=== PATIENT | male | born 1940 | race Caucasian/White ===

== ENCOUNTER → 2023-11-12 12:50 | Outpatient (REF) | payer OTHER, SELFPAY | LOC: DHCBS MAIN 12:50 | PROVIDERS: ATTENDING PHYSICIAN Nuclear Medicine Nuclear Cardiology; FAMILY PHYSICIAN Internal Medicine | DX: Z95.1 Presence of aortocoronary bypass graft (principal); I25.10 Atherosclerotic heart disease of native coronary artery without angina pectoris; I50.30 Unspecified diastolic (congestive) heart failure | CPT/HCPCS: 93306 ==

== ENCOUNTER 2024-03-27 13:15 | Outpatient (RCR) | payer OTHER, SELFPAY | END 2024-03-27 23:59 | disposition home or self-care (01) | LOC: PURB 13:15 | PROVIDERS: ATTENDING PHYSICIAN Internal Medicine Critical Care Medicine; FAMILY PHYSICIAN Internal Medicine | DX: J44.9 Chronic obstructive pulmonary disease, unspecified (principal) | CPT/HCPCS: 94625; G0237 ==

== ENCOUNTER 2024-04-22 23:01 | Inpatient (IN) | payer OTHER, SELFPAY ==
[2024-04-22] VITALS (9 sets, daily range): BP systolic 121–167; BP diastolic 10–117
[2024-04-22 19:22] LABS: % Basophils 0.5 % (0-2); % Eosinophils 1.9 % (0-6); % Immature Granulocytes 0.3 % (0-0.5); % Lymphocytes 13.7 % (20.5-51.1); % Monocytes 6.6 % (1.7-9.3); Absolute Eosinophils 0.2 10^3/uL (0-0.7); Absolute Lymphocytes 1.1 10^3/uL (1.2-3.4); Absolute Monocytes 0.5 10^3/uL (0.1-0.6); Absolute Neutrophils 6.1 10^3/uL (1.4-6.5); Hematocrit 43.4 % (39.0-52.0); Mean Corp Hgb Conc. 34.6 g/dL (33.0-37.0); Mean Corpuscular Hgb 30.4 pg (27.0-31.0); Mean Corpuscular Volume 87.9 fL (80.0-94.0); Nucleated Red Blood Cells % 0 % (-); Red Blood Cell Count 4.94 10^6/uL (4.70-6.10); Red Cell Dist. Width 14.3 % (11.5-14.5); White Blood Cell Count 7.9 10^3/uL (4.8-10.8)
[2024-04-22 19:37] LABS: ALT (SGPT) 20 U/L (0-50); AST (SGOT) 38 U/L (17-59); Albumin 4.7 g/dl (3.5-5.0); Alkaline Phosphatase 66 U/L (38-126); Blood Urea Nitrogen 26 mg/dl (9-20); Calcium 9.6 mg/dl (8.4-10.2); Carbon Dioxide 26 mmol/L (22-30); Chloride 97 mmol/L (98-107); Glucose 126 mg/dl (70-99); Lipase 60 U/L (23-300); Sodium 133 mmol/L (135-145); Total Bilirubin 1.3 mg/dl (0.2-1.3); Total Protein 7.3 g/dl (6.3-8.2); eGFR > 60.00
[2024-04-22 19:40] LABS: Platelet Count 193 10^3/uL (130-400)
[2024-04-22] MEDS: NSS 1000 IV (19:59)
[2024-04-22] MEDS: DILAUDID 0.5 MG IV (19:59)
[2024-04-22 20:12] LABS: ALT (SGPT) 19 U/L (0-50); AST (SGOT) 33 U/L (17-59); Albumin 4.5 g/dl (3.5-5.0); Alkaline Phosphatase 67 U/L (38-126); Blood Urea Nitrogen 27 mg/dl (9-20); Calcium 9.5 mg/dl (8.4-10.2); Carbon Dioxide 29 mmol/L (22-30); Chloride 97 mmol/L (98-107); Glucose 120 mg/dl (70-99); Potassium 4.9 mmol/L (3.5-5.1); Sodium 133 mmol/L (135-145); Total Bilirubin 1.2 mg/dl (0.2-1.3); Total Protein 6.9 g/dl (6.3-8.2); eGFR > 60.00
[2024-04-22] MEDS: DILAUDID 1 MG IV (21:19)
--- NOTE | 2024-04-22 21:39 | ED.GENMED ---
History of Present Illness
General
Chief Complaint: Abdominal Pain
Source: patient
Exam Limitations: none
Time Seen by Provider: 04/22/24 19:30
Nursing documentation reviewed up to this point in time: agreed with
History of Present Illness
History of Present Illness:
Patient to ED with complaint of worsening abdominal pain, nausea, dry heaves. Symptoms started last PM. History of SBO in past, symptoms feel the same. Denies fever/chills. Brought self to ED for eval
Past History
Past History
ED Past Medical History: Cancer (Rectal carcinoma), COPD, HTN, Other (Osteoarthritis) and Other (Small bowel obstructions)
ED Past Surgical History: Bowel resection (1995 with colostomy. Bowel resection 1996); Negative Cardiac
Social History
Tobacco: Former smoker
Alcohol: None
Drug: None
Personal:
Living: with family
Employment: Retired
Family History
Family History: Hypertension
Review of Systems
Review of Systems
Allergies reviewed?: Yes
All Other Systems: ROS reviewed and negative except as documented in HPI and ROS
Constitutional: Reports no symptoms
EENT: Reports no symptoms
Respiratory: Reports no symptoms
Cardiac: Reports no symptoms
ABD/GI: Reports abdominal pain, nausea and vomiting (dry heaves)
: Reports no symptoms
Musculoskeletal: Reports no symptoms
Skin: Reports no symptoms
Neurological: Reports no symptoms
Psychiatric: Reports no symptoms
Phy Exam
General Physical Exam
General Presentation: well appearing and no apparent distress
General age: appears stated age
General Skin: warm and dry
General Habitus: normal
Cardiovascular Exam
Cardiovascular Exam: regular rate/rhythm and no edema
Pulmonary Exam
Pulmonary Exam: lungs clear and no respiratory distress
Gastrointestinal Exam
Gastrointestinal Exam: normal bowel sounds, soft, no organomegaly and non distended
Palpation: generalized: Moderate tenderness
Musculoskeletal Exam
Musculoskeletal Exam: full ROM
Skin Exam
Skin Exam: normal color, warm/dry and no rash
Psychiatric Exam
Psychiatric Exam: normal mood/affect
Course
Orders/Labs/Results
Orders:
Orders
04/22/24 18:55
Electrocardiogram (*1) Urgent
Reason for Study: Abdominal Pain
EKG- Treatment ONCE
IV Insert/Care/Rem.- Treatment PRN
Straight cath- Treatment ONCE
04/22/24 19:08
Complete Blood Count/With Diff Urgent
Comprehensive Metabolic Panel Urgent
Lipase Urgent
04/22/24 19:46
Comprehensive Metabolic Panel Urgent
04/22/24 19:55
Obstruct Series W/PA Chest [CR Obstruct Series W/pa Chest] Urgent
Comment:
Reason For Exam: pain vomiting hx of obstruction
04/22/24 19:56
0.9% Sodium Chloride 1000 ml [Nss] 1,000 ml IV BOLUS
HYDROmorphone [Dilaudid] 0.5 mg IV NOW STA
04/22/24 21:17
HYDROmorphone [Dilaudid] 1 mg IV NOW STA
04/22/24 21:36
Urinalysis Reflex To Culture Urgent
Date Specimen was Collected: 04/22/24
Time Specimen was Collected: 18:55
04/22/24 22:00
Flush (0.9% Sodium Chloride) [Flush (Nss)] See Dose Instructions IV PER PROTOCOL
Abnormal Lab Results
04/22/24 04/22/24
19:08 19:46
Absolute Lymphs (auto) 1.1 L 10^3/uL
(1.2-3.4)
Neutrophils % 77.0 H %
(42.2-75.2)
Lymphocytes % 13.7 L %
(20.5-51.1)
Sodium 133 L mmol/L 133 L mmol/L
(135-145) (135-145)
Chloride 97 L mmol/L 97 L mmol/L
(98-107) (98-107)
BUN 26 H mg/dl 27 H mg/dl
(9-20) (9-20)
Glucose 126 H mg/dl 120 H mg/dl
(70-99) (70-99)
04/22/24 19:08
04/22/24 19:46
Vital Signs
Initial and Last Documented VS:
Initial Vital Signs
Temp Pulse Resp BP Pulse Ox
97.9 F 82 20 125/76 94
04/22/24 18:50 04/22/24 18:50 04/22/24 18:50 04/22/24 18:50 04/22/24 18:50
Last Documented Vital Signs
Temp Pulse Resp BP Pulse Ox
97.9 F 68 16 121/73 95
04/22/24 18:50 04/22/24 22:01 04/22/24 22:01 04/22/24 22:01 04/22/24 22:01
*Radiology
Radiology exam reviewed: radiology read reviewed
*Pulse Oximetry
Patient hypoxic: no
*Critical Care Note
Total Time (30-74mins, 75-104mins- exclusive of procedures): Not Applicable
Update Note
Update Note:
Labs, xray reviewed (he declined CT). +SBO. No vomiting in ED Pain well controlled with dilaudid. Will admit to hospitalist service.
ED Attending Note
-
Portions of this chart may have been created with voice recognition software.� Occasional wrong word or��sound alike� substitutions may have occurred due to the inherent limitations of voice recognition software.
Discharge Plan
Departure
Patient Disposition: Admit
Date of Disposition: 04/22/24
Time of Disposition: 21:45
Presentation/result/management discussed w/ accepting MD/DO: Hospitalist
Condition: Fair
Covid-19: Not Applicable
Discharge Problem:
SBO (small bowel obstruction)
Prescriptions:
No Action
albuterol sulfate 1 PUFF HFA aerosol inhaler
2 puff inhalation R Q4HPRN PRN (Reason: sob/wheeze)
albuterol sulfate 2.5 MG/3 ML solution for nebulization
2.5 mg inhalation R TIDPRN PRN (Reason: sob/wheezing)
Patient Comments:
per daughter not taking
multivitamin with folic acid [Tab-A-Mirza] 1 TABLET tablet
1 tab PO DAILYPRN PRN (Reason: Supplement)
melatonin 5 MG tablet
5 mg PO HS 0RF
fluticasone furoate-vilanterol [Breo Ellipta] 1 EACH blister with device
1 puff inhalation R BID
acetaminophen 325 MG tablet
650 mg PO Q4HPRN PRN (Reason: aches) 0RF
atorvastatin 40 MG tablet
40 mg PO QPM Qty: 30 2RF
aspirin 81 MG tablet,chewable
81 mg PO DAILY
escitalopram oxalate 10 MG tablet
10 mg PO BID
metoprolol tartrate 25 MG tablet
25 mg PO BID Qty: 0 0RF
tizanidine 2 mg Tablet
2 mg PO BIDPRN PRN (Reason: muscle spasms)
tamsulosin 0.4 mg Capsule
0.8 mg PO DAILY
levocetirizine 5 mg Tablet
5 mg PO QPM
magnesium citrate 100 mg Tablet
200 mg PO DAILY
Spiriva Respimat 1.25 mcg/actuation Mist
2 puff INHALATION R QPM
Referrals:
Orlando Diane MD [Family Provider] -
Interventions
Interventions:
*Risk Screen - Suicide Last Done: 04/22/24 18:50
*General Assessment Last Done: 04/22/24 18:50
*Neglect/Abuse Screening Last Done: 04/22/24 18:50
ED- Fall Risk Assessment Last Done: 04/22/24 18:50
*ED COVID-19 Vaccine History Last Done: 04/22/24 18:50
IU-Znowzb-Oiufkcwtjb Assessment Last Done: 04/22/24 19:39
Discharge Date and Time
Print Language: YAKUT
--- NOTE | 2024-04-22 22:31 | HPS.HSE ---
Family Physician
-
Family Physician: Orlando Diane
Chief Complaint
-
abdominal pain felt like SBO again
History of Present Illness
HPI
83M HX multiple SBO, Rectal CA s/p Bowel resection in 1995 with colostomy. Bowel resection 1996, HTN, COPD seen at ER for evaluation of abdominal pain;
Abdominal pain
- Acute onset but worsening felt like prior episodes of SBO
- last colostomy output: yesterday 04/21/24 afternoon , very negligible flatus
- HX SBO with last admission in January 2023
- POS abdominal pain, nausea, dry heaves
Medical History
Past Medical History
Past Medical History: Reports Other
Additional Past Medical History:
ASCVD
Colorectal Cancer s/p LAR Chemo and XRT, Permanent Colostomy
Severe Allergies, Allergic Asthma / COPD
Hypertension
Recurrent Small Bowel Obstructions
Past Surgical History: Reports Other
Additional Past Surgical History:
LAR / Permanent Colostomy
CABG
T&A
Partial Small Bowel Resection / RICHARD
Cataracts
Social History
Tobacco: Former Smoker (Quit many years ago. Approx 40 pack years total.)
Alcohol: Former (Quit drinking in 1969.)
Family History
Family History: Other (Brother: Colon Cancer Mother: DM-II)
Allergies / Home Medications
Allergies reflects when Allergies were last updated in [facility].
Home Medications with original date entered in [facility]
Allergy/Medication List:
Allergies
Allergy/AdvReac Type Severity Reaction Status Date / Time
house dust mite Allergy Cough Verified 09/27/23 22:03
morphine Allergy Nausea / Verified 09/27/23 22:03
Vomiting/HEADACHES
pollen extracts Allergy Cough Verified 09/27/23 22:03
Tetracyclines Allergy nausea/vomi Verified 09/27/23 22:03
ting
Home Medications
albuterol sulfate 90 mcg/actuation aerosol inhaler 1 puff inhalation R Q4HPRN PRN sob/wheeze 09/26/19
albuterol sulfate 2.5 mg/3 mL (0.083 %) solution for nebulization 2.5 mg inhalation R TID Lung/breathing issues 10/27/19
multivitamin with folic acid 400 mcg tablet (Tab-A-Mirza) 1 tab PO DAILY Supplement 11/09/21
melatonin 5 mg tablet 5 mg PO HS 11/21/21
acetaminophen 325 mg tablet 650 mg PO Q4HPRN PRN aches 12/26/21
atorvastatin 40 mg tablet 40 mg PO QPM #30 tabs 12/26/21
fluticasone furoate 100 mcg-vilanterol 25 mcg/dose inhalation powder (Breo Ellipta) 1 puff inhalation HS Lung/breathing issues 12/26/21
aspirin 81 mg chewable tablet 81 mg PO DAILY Autoimmune disorder 02/11/22
magnesium 500 mg tablet 500 mg PO DAILY Supplement 02/26/23
escitalopram oxalate 10 mg tablet 10 mg PO BID Depression 09/28/23
metoprolol tartrate 25 mg tablet 25 mg PO DAILY 09/28/23
Review of Systems
-
Constitutional: Reports No Symptoms
EENT: Reports No Symptoms
Respiratory: Reports No Symptoms
Cardiac: Reports No Symptoms
Abdomen/GI: Reports Abdominal Pain, Nausea and Vomiting (dry heeaving )
: Reports No Symptoms
Musculoskeletal: Reports No Symptoms
Skin: Reports No Symptoms
Neurological: Reports No Symptoms
Endocrine: Reports No Symptoms
Hematologic/Lymphatic: Reports No Symptoms
Psych: Reports No Symptoms
Physical Exam
Vital Signs
Vital Signs
Temp Pulse Resp BP Pulse Ox
97.9 F 68 16 121/73 95
04/22/24 18:50 04/22/24 22:01 04/22/24 22:01 04/22/24 22:01 04/22/24 22:01
Physical Exam
General: Well Developed
Laboratory Results
-
04/22/24 19:08
04/22/24 19:46
Laboratory Results
Total Bilirubin 1.2 mg/dl (0.2-1.3) 04/22/24 19:46
AST 33 U/L (17-59) 04/22/24 19:46
ALT 19 U/L (0-50) 04/22/24 19:46
Alkaline Phosphatase 67 U/L (38-126) 04/22/24 19:46
Lipase 60 U/L (23-300) 04/22/24 19:08
Data Reviewed
-
Diagnostic Radiology: Report Reviewed by me
CT Scan: Other (refused CT AP )
Lab Data: Labs Reviewed by me
Old Records: Reviewed
Impression/Plan
-
Reviewed VS: stable and unremarkable
Data
unremarkable CBC
Na 133
Cl 97
BUN 27
Cr 0.9 eGFR > 60
BG 120
Lipase 60
Pending UA
AXR/CXR: The bowel gas pattern is most suggestive of a small bowel obstruction.
CT AP: patient refused due to many CT before
Last hospitalist admission: 09/28/23 - 09/30/23 PDxs;
Influenza A with resolved acute hypoxemic respiratory insufficiency
Acute Chronic Obstructive Pulmonary Disease exacerbation due to Influenza A Infection
Diarrhea- Likely secondary to the Influenza A
History of Coronary Artery Bypass Grafting/Coronary Artery Disease
ASSESSMENT & PLAN
Recurrent SBO per XR : he refused CT AP
last colostomy output : yesterday afternoon , negligible flatus noted
HX SBO with last admission in january 2023
HX Colorectal Cancer; s/p resection and adjuvant chemo and XRT
- NPO and IVF
- PRN Dilaudid Analgesia
-Permanent LLQ ostomy
- continue routine ostomy care and f/u output
- IOs daily
- GS consult
Essential HTN
- Stable.
- held outpatient regimen due to SBO
- add IV Hydralazine PRN for SBP > 165, DBP >110
ASCVD Hx
HLD
- Stable.
- Hold ASA and Statin
- Monitor for any new symptoms.
COPD / Allergic Asthma
- No active wheezing
- cont PROBATION SUPERVISOR INH / PRN albuterol.
DVT Px: SCD
Code: Full code
IP MS
[2024-04-23 00:08] VITALS: BMI 25.9
[2024-04-23 00:13] VITALS: BP 129/65
[2024-04-23] MEDS: NSS 1000 IV ×2 (00:19→12:18)
[2024-04-23] MEDS: DILAUDID 0.5 MG IV (00:19)
[2024-04-23] MEDS: ZOFRAN 4 MG IV ×2 (00:20→08:08)
[2024-04-23 00:34] LABS: Urine Albumin Trace (Neg - Trace); Urine Bilirubin 1+ (Negative); Urine Character Clear (Clear); Urine Color Yellow; Urine Glucose Negative (Negative); Urine Ketone 2+ (Negative); Urine Leukocyte Negative (Negative); Urine Nitrite Negative (Negative); Urine Occult Blood Negative (Negative); Urine Specific Gravity 1.015 (<1.030); Urine Urobilinogen Negative (Neg - 1+)
--- NOTE | 2024-04-23 00:50 | PTCARENOTE ---
Received pt from ED via stretcher. Pt ambulated to bed with assist of 1 and cane. AAOx3, hard of hearing, VSS. Oriented pt to floor, call ma within reach.
[2024-04-23 07:15] VITALS: BP 108/53
[2024-04-23 07:21] LABS: Hematocrit 40.8 % (39.0-52.0); Hemoglobin 13.7 g/dL (13.0-18.0); Mean Corp Hgb Conc. 33.6 g/dL (33.0-37.0); Mean Corpuscular Hgb 30.6 pg (27.0-31.0); Mean Corpuscular Volume 91.3 fL (80.0-94.0); Mean Platelet Volume 10.1 fL (7.4-10.4); Platelet Count 158 10^3/uL (130-400); Red Blood Cell Count 4.47 10^6/uL (4.70-6.10); Red Cell Dist. Width 13.8 % (11.5-14.5); White Blood Cell Count 4.7 10^3/uL (4.8-10.8)
[2024-04-23 07:37] LABS: Blood Urea Nitrogen 23 mg/dl (9-20); Calcium 8.8 mg/dl (8.4-10.2); Carbon Dioxide 30 mmol/L (22-30); Chloride 99 mmol/L (98-107); Estimated Creatinine Clearance 71 ml/min; Glucose 119 mg/dl (70-99); Potassium 4.4 mmol/L (3.5-5.1); Sodium 135 mmol/L (135-145); eGFR > 60.00
--- NOTE | 2024-04-23 10:32 | CON.GS ---
Consultation
-
Date/Time Consultation Requested: 04/22/2024 11 PM
Date/Time Consultation Performed: 04/23/2024 9 AM
Requesting Provider: Dr. Herrera
Performing Provider: Dr. Perry
Reason for Consultation: Small bowel obstruction
Medical History
-
Chief Complaint: Abdominal pain
History of Present Illness:
This is an 83-year-old male with a history of rectal cancer status post bowel resection in 1995 with end colostomy, status post exploratory laparotomy and small bowel resection for perforation secondary to adjuvant radiation complicated by multiple
recurrent small bowel obstructions. He presented to our hospital 04/22/2024 with abdominal pain and nausea similar to his previous episodes. As such she refused CT scan and plain films confirmed his diagnosis. Today he states that he is already
feeling a little bit better and noted some flatus in his stoma bag which he evacuated. The patient denies Fever, Chest Pain, Shortness Of Breath, Nausea, changes in urinary and bowel habits, unintentional weight loss.
Past Medical History
Past Medical History: COPD and HTN
Past Surgical History: Other (Rectal cancer status post LAR with end colostomy. Exploratory laparotomy/SBR)
Social History
Tobacco: Former Smoker
Alcohol: Former
Drug: None
Family History
Family History: Reviewed & Not Pertinent
Allergies / Home Medications
Allergy/AdvReac Type Severity Reaction Status Date / Time
house dust mite Allergy Cough Verified 04/22/24 18:50
morphine Allergy Nausea / Verified 04/22/24 18:50
Vomiting/HEADACHES
pollen extracts Allergy Cough Verified 04/22/24 18:50
Tetracyclines Allergy nausea/vomi Verified 04/22/24 18:50
ting
�Medication �Instructions �Recorded �Confirmed �Type
albuterol sulfate 90 mcg/actuation 2 puff inhalation R Q4HPRN PRN 09/26/19 04/22/24 History
aerosol inhaler sob/wheeze
albuterol sulfate 2.5 mg/3 mL 2.5 mg inhalation R TIDPRN PRN 10/27/19 04/22/24 History
(0.083 %) solution for nebulization sob/wheezing
multivitamin with folic acid 400 1 tab PO DAILYPRN PRN Supplement 11/09/21 04/22/24 History
mcg tablet (Tab-A-Mirza)
melatonin 5 mg tablet 5 mg PO HS 11/21/21 04/22/24 Rx
acetaminophen 325 mg tablet 650 mg (2 x 325 mg) PO Q4HPRN PRN 12/26/21 04/22/24 Rx
aches
atorvastatin 40 mg tablet 40 mg PO QPM #30 tabs 12/26/21 04/22/24 Rx
fluticasone furoate 100 1 puff inhalation R BID 12/26/21 04/22/24 History
mcg-vilanterol 25 mcg/dose Lung/breathing issues
inhalation powder (Breo Ellipta)
aspirin 81 mg chewable tablet 81 mg PO DAILY Autoimmune disorder 02/11/22 04/22/24 History
escitalopram oxalate 10 mg tablet 10 mg PO BID Depression 09/28/23 04/22/24 History
metoprolol tartrate 25 mg tablet 25 mg PO BID Blood Pressure #0 tabs 09/30/23 04/22/24 Rx
levocetirizine 5 mg tablet 5 mg PO QPM Allergies 04/22/24 04/22/24 History
magnesium citrate 100 mg tablet 200 mg PO DAILY Supplement 04/22/24 04/22/24 History
tamsulosin 0.4 mg capsule 0.8 mg PO DAILY Urinary Issue 04/22/24 04/22/24 History
tiotropium bromide 1.25 2 puff inhalation R QPM 04/22/24 04/22/24 History
mcg/actuation mist for inhalation Lung/Breathing Issues
(Spiriva Respimat)
tizanidine 2 mg tablet 2 mg PO BIDPRN PRN muscle spasms 04/22/24 04/22/24 History
Review of Systems
-
All other systems: Negative unless noted
A 10 point review of systems was completed, and was negative except as per HPI.
Physical Exam
Vital Signs
Temp Pulse Resp BP Pulse Ox
98.3 F 79 18 108/53 96
04/23/24 07:15 04/23/24 07:15 04/23/24 07:15 04/23/24 07:15 04/23/24 07:15
04/22/24 04/23/24 04/24/24
06:59 06:59 06:59
Actual Weight 86.591 kg
Body Mass Index (BMI) 25.9
Lab Results
04/23/24 06:42
04/23/24 06:42
WBC 4.7 10^3/uL (4.8-10.8) L 04/23/24 06:42
Hgb 13.7 g/dL (13.0-18.0) 04/23/24 06:42
Hct 40.8 % (39.0-52.0) 04/23/24 06:42
Plt Count 158 10^3/uL (130-400) 04/23/24 06:42
Abs Immat Gran (auto) 0.0 10^3/uL (0-0.05) 04/22/24 19:08
Neutrophils % 77.0 % (42.2-75.2) H 04/22/24 19:08
Physical Exam
HEENT: Normocephalic
Respiratory: Non Labored Respirations
GI: Soft, Non Tender and Distended
Data Reviewed
-
Radiology: Image Personally Visualized and interpreted and Discussed with Patient
Labs: Labs Reviewed by me and Discussed with Patient
Total Time Spent with Patient (in minutes): 25
Assessment / Plan
-
This is an 83-year-old male with a history of rectal cancer status post resection with end colostomy as well as a subsequent exploratory laparotomy and small bowel resection for perforated bowel who presents with a small bowel obstruction in the
setting of multiple recurrent to small bowel obstructions likely from adhesions. He is already having some return of bowel function though still distended on exam.
No acute general surgery intervention warranted at this time. Will manage his small bowel obstruction nonoperatively for now. Because the patient refused a CT scan there is a chance that there could be a closed-loop obstruction that we were unable
to identify on just plain film however given that this episode is very similar to his previous bouts I think it is reasonable to proceed without any further imaging.
Will keep n.p.o. for now although okay for sips and chips and meds.
IV fluids.
Out of bed and ambulate as able.
If patient improves we can advance to clears later today, if he fails to improve by tomorrow we will consider an upper GI small bowel follow-through.
Will continue to follow
--- NOTE | 2024-04-23 10:39 | W.PN.HOSP.TC ---
Today's Communication/Plan
-
allow clear liquids, follow labs
Assessment / Plan
Assessment / Plan
Recurrent SBO per XR : he refused CT AP
starting to pass flatus
HX SBO with last admission in january 2023
HX Colorectal Cancer; s/p resection and adjuvant chemo and XRT
- continue IVF, will allow clear liquid, though pt told to not push
- PRN Dilaudid Analgesia
-Permanent LLQ ostomy
- continue routine ostomy care and f/u output
- IOs daily
- GS consult
Essential HTN
- Stable.
- held outpatient regimen due to SBO
- add IV Hydralazine PRN for SBP > 165, DBP >110
ASCVD Hx
HLD
- Stable.
- Hold ASA and Statin
- Monitor for any new symptoms.
COPD / Allergic Asthma
- No active wheezing
- cont CHEMICAL STRENGTH TESTER INH / PRN albuterol.
DVT Px: SCD
Code: Full code
IP MS
Anticipated Discharge: > 48 hours
Subjective/Interval History
-
Date of Service: April 23, 2024
Passing flatus into ostomy, pain has diminished
Objective Data
-
Labs:
Laboratory Results
04/23/24
06:42
WBC 4.7 L
Hgb 13.7
Hct 40.8
Plt Count 158
Sodium 135
Potassium 4.4
Chloride 99
Carbon Dioxide 30
BUN 23 H
Creatinine 0.9
Glucose 119 H
Calcium 8.8
Vital Signs:
Vital Signs
Temp Pulse Resp BP Pulse Ox
98.3 F 79 18 108/53 96
04/23/24 07:15 04/23/24 07:15 04/23/24 07:15 04/23/24 07:15 04/23/24 07:15
Review of Systems
-
History Source: Patient
Constitutional: Denies Fever
EENT: Reports No Symptoms Reported
Respiratory: Reports No Symptoms
Cardiac: Reports No Symptoms
Abdomen/GI: Reports Abdominal Pain (has lessened); Denies Nausea (appears to have resolved)
Musculoskeletal: Reports No Symptoms
Physical Exam
-
General: Well Developed, Well Nourished, Comfortable and Conversant
HEENT: Normocephalic
Respiratory: Clear to Auscultation and Non Labored Respirations; Negative Wheezes (resolved)
Cardiac: Regular Rhythm and S1/S2
GI: Soft, Nondistended, Normal Bowel Sounds and Tender (minimal to light pressing)
Genito-urinary: No Costovertebral Tender
Musculoskeletal: No Clubbing
Skin: Warm
Neuro: Awake and Alert
Psych: Calm and Intact Judgement/Insight
--- NOTE | 2024-04-23 14:36 | CM ---
Alert awake oriented patient who lives with his daughter Lisa who lives in a 1 story home with 0 step to enter and bed and bathroom on first floor. He is independent in driving and in all activities of daily living.He was offered VN he declined
need.He uses a cane. He is on oxygen here [place] need.
[facility] hx / No SNF history
Pharmacy [facility] [address]
PCP DR Justin Leslie
PLAN Home Declined VN
[2024-04-23 15:15] VITALS: BP 118/58
[2024-04-23] MEDS: SPIRIVA RESPIMAT 2.5 MCG 2 PUFF INH (19:26)
[2024-04-23 23:00] VITALS: BP 148/69
[2024-04-24] MEDS: NSS 1000 IV (00:35)
[2024-04-24 06:00] VITALS: BMI 25.7
[2024-04-24 06:55] VITALS: BP 133/66
[2024-04-24 08:06] LABS: % Basophils 0.5 % (0-2); % Immature Granulocytes 0.3 % (0-0.5); % Lymphocytes 27.8 % (20.5-51.1); % Monocytes 13.9 % (1.7-9.3); % Neutrophils 47.5 % (42.2-75.2); Absolute Eosinophils 0.4 10^3/uL (0-0.7); Absolute Lymphocytes 1.1 10^3/uL (1.2-3.4); Absolute Monocytes 0.5 10^3/uL (0.1-0.6); Absolute Neutrophils 1.8 10^3/uL (1.4-6.5); Hematocrit 38.5 % (39.0-52.0); Hemoglobin 12.6 g/dL (13.0-18.0); Mean Corp Hgb Conc. 32.7 g/dL (33.0-37.0); Mean Corpuscular Hgb 30.4 pg (27.0-31.0); Mean Platelet Volume 10.2 fL (7.4-10.4); Nucleated Red Blood Cells % 0 % (-); Platelet Count 144 10^3/uL (130-400); Red Blood Cell Count 4.14 10^6/uL (4.70-6.10); Red Cell Dist. Width 14.2 % (11.5-14.5); White Blood Cell Count 3.8 10^3/uL (4.8-10.8)
[2024-04-24 09:39] LABS: Calcium 8.6 mg/dl (8.4-10.2); Carbon Dioxide 23 mmol/L (22-30); Estimated Creatinine Clearance 79 ml/min; Potassium 4.1 mmol/L (3.5-5.1); eGFR > 60.00
[2024-04-24 09:48] LABS: Blood Urea Nitrogen 13 mg/dl (9-20); Chloride 106 mmol/L (98-107); Glucose 91 mg/dl (70-99); Sodium 135 mmol/L (135-145)
--- NOTE | 2024-04-24 10:26 | W.PN.GS2 ---
Today's Communication / Plan
-
`
Assessment / Plan
-
Assessment: 83 y/o male well known to our surgical service admitted with recurrent pSBO
AFVSS
clinically and radiographically improving
Plan: pt would like to try solid foods cautiously; well aware of dietary management and resumption of po intake as he has had innumerable prior pSBO episodes managed nonoperatively.
okay for d/c from surgical standpoint if carin PO challenge and ostomy function continues to progress
Subjective Data
-
Date of Service: April 24, 2024
pt seen and examined
feeling better, no further nausea
no abdominal pain
ostomy now producing more regular gas; small smear of stool in bag
Objective Data
-
Intake and Output
04/23/24 04/24/24 04/25/24
06:59 06:59 06:59
Intake Total 1200 / 1200
Output Total 620 / 620
Balance 580 / 580
Intake:
Oral fluids 1200 / 1200
Output:
Urine, Voided 620 / 620
Other:
Number of approximated MODERATE 2 4
amounts of urine
Vital Signs
Temp Pulse Resp BP Pulse Ox
99.2 F 74 20 133/66 93
04/24/24 06:55 04/24/24 06:55 04/24/24 06:55 04/24/24 06:55 04/24/24 06:55
Lab Results
04/24/24 07:18
04/24/24 07:18
Calcium 8.6 mg/dl (8.4-10.2) 04/24/24 07:18
Total Bilirubin 1.2 mg/dl (0.2-1.3) 04/22/24 19:46
AST 33 U/L (17-59) 04/22/24 19:46
ALT 19 U/L (0-50) 04/22/24 19:46
Alkaline Phosphatase 67 U/L (38-126) 04/22/24 19:46
Total Protein 6.9 g/dl (6.3-8.2) 04/22/24 19:46
Albumin 4.5 g/dl (3.5-5.0) 04/22/24 19:46
Physical Exam
-
NAD AAOx3
ABD: soft, ND, NTTP
stoma appliance in place LLQ - flat (pt states he just emptied it)
[2024-04-24] MEDS: NSS IV (13:08)
--- NOTE | 2024-04-24 14:02 | W.PN.HOSP.TC ---
Today's Communication/Plan
-
dc to home
Assessment / Plan
Assessment / Plan
Recurrent SBO per XR : he refused CT AP
starting to pass stool and flatus
HX SBO with last admission in january 2023
HX Colorectal Cancer; s/p resection and adjuvant chemo and XRT
- tolerating LRD
- PRN Dilaudid Analgesia
-Permanent LLQ ostomy
- continue routine ostomy care and f/u output
- IOs daily
- GS consult appreciated
feels much better and is asking to be dc
Essential HTN
- Stable.
- held outpatient regimen due to SBO
- add IV Hydralazine PRN for SBP > 165, DBP >110
ASCVD Hx
HLD
- Stable.
- Hold ASA and Statin
- Monitor for any new symptoms.
COPD / Allergic Asthma
- No active wheezing
- cont INTERNAL RECRUITER INH / PRN albuterol.
DVT Px: SCD
Code: Full code
IP MS
dc now
see dictated note
More than 30 minutes spent in discharge including
Final examination of the patient
Summarizing hospital stay
Instructions for continuing care to all relevant caregivers
Preparation of discharge records, prescriptions, and referral forms
Total time spent (in minutes): 45
Anticipated Discharge: Today
Subjective/Interval History
-
Date of Service: April 24, 2024
Feels better and is anxiously awaiting dc
Objective Data
-
Labs:
Laboratory Results
04/24/24
07:18
WBC 3.8 L
Hgb 12.6 L
Hct 38.5 L
Plt Count 144
Sodium 135
Potassium 4.1
Chloride 106
Carbon Dioxide 23
BUN 13
Creatinine 0.8
Glucose 91
Calcium 8.6
Vital Signs:
Vital Signs
Temp Pulse Resp BP Pulse Ox
99.2 F 74 20 133/66 96
04/24/24 06:55 04/24/24 06:55 04/24/24 06:55 04/24/24 06:55 04/24/24 08:10
I&O
04/23/24 04/24/24 04/25/24
06:59 06:59 06:59
Intake Total 1200 / 1200
Output Total 620 / 620
Balance 580 / 580
Review of Systems
-
History Source: Patient
Constitutional: Denies Fever
EENT: Reports No Symptoms Reported
Respiratory: Reports No Symptoms
Cardiac: Reports No Symptoms
Abdomen/GI: Reports Abdominal Pain (resolved) and Constipated (starting to move bowels into ostomy, passing flatus); Denies Nausea (appears to have resolved)
Musculoskeletal: Reports No Symptoms
Physical Exam
-
General: Well Developed, Well Nourished, Comfortable and Conversant
HEENT: Normocephalic
Respiratory: Clear to Auscultation and Non Labored Respirations; Negative Wheezes (resolved)
Cardiac: Regular Rhythm and S1/S2
GI: Soft, Nondistended, Normal Bowel Sounds, Tender (resolved) and Ostomy
Genito-urinary: No Costovertebral Tender
Musculoskeletal: No Clubbing
Skin: Warm
Neuro: Awake and Alert
Psych: Calm and Intact Judgement/Insight
--- NOTE | 2024-04-24 14:15 | W.DS.TRANS ---
DC Summary - Dialysis Rn
-
Discharge Instructions:
Discharge Diagnosis/Procedures Small Bowel Obstruction
Diet Low Fiber,Low Residue
Activity No strenuous activity
Driving Restrictions As prior to admission
Bathing Restrictions None
Blood Work CBC, BMP in 1-2 weeks
Instructions:
Stand-Alone Forms:
Changes to Home Medications: No
Discharge Medications:
DC Medications w/original date entered in [employer] ([facility])
albuterol sulfate 90 mcg/actuation aerosol inhaler 2 puff inhalation R Q4HPRN PRN sob/wheeze 09/26/19
albuterol sulfate 2.5 mg/3 mL (0.083 %) solution for nebulization 2.5 mg inhalation R TIDPRN PRN sob/wheezing 10/27/19
multivitamin with folic acid 400 mcg tablet (Tab-A-Mirza) 1 tab PO DAILYPRN PRN Supplement 11/09/21
melatonin 5 mg tablet 5 mg PO HS 11/21/21
acetaminophen 325 mg tablet 650 mg (2 x 325 mg) PO Q4HPRN PRN aches 12/26/21
atorvastatin 40 mg tablet 40 mg PO QPM #30 tabs 12/26/21
fluticasone furoate 100 mcg-vilanterol 25 mcg/dose inhalation powder (Breo Ellipta) 1 puff inhalation R BID Lung/breathing issues 12/26/21
aspirin 81 mg chewable tablet 81 mg PO DAILY Autoimmune disorder 02/11/22
escitalopram oxalate 10 mg tablet 10 mg PO BID Depression 09/28/23
metoprolol tartrate 25 mg tablet 25 mg PO BID Blood Pressure #0 tabs 09/30/23
levocetirizine 5 mg tablet 5 mg PO QPM Allergies 04/22/24
magnesium citrate 100 mg tablet 200 mg PO DAILY Supplement 04/22/24
tamsulosin 0.4 mg capsule 0.8 mg PO DAILY Urinary Issue 04/22/24
tiotropium bromide 1.25 mcg/actuation mist for inhalation (Spiriva Respimat) 2 puff inhalation R QPM Lung/Breathing Issues 04/22/24
tizanidine 2 mg tablet 2 mg PO BIDPRN PRN muscle spasms 04/22/24
polyethylene glycol 3350 17 gram oral powder packet (HealthyLax) 17 g PO DAILYPRN PRN constipation #30 ea 04/24/24
Home Medication Changes
Pending Results: No
--- NOTE | 2024-04-24 14:18 | CM ---
MD entered order for discharge.
He said he is ready for discharge.
He said dgt Lisa will be driving him home.
Offered VN he declined need.
PLAN Home no needs
[2024-04-24 15:20] VITALS: BP 135/84
== END 2024-04-24 15:36 | disposition home or self-care (01) | DRG 390 ==
LOC: 4 EAST ACU 23:01
PROVIDERS: ADMITTING PHYSICIAN Internal Medicine; ATTENDING PHYSICIAN Internal Medicine; CONSULT PHYSICIAN Surgery; EMERGENCY PHYSICIAN Emergency Medicine; FAMILY PHYSICIAN Internal Medicine
DX: K56.50 Intestinal adhesions [bands], unspecified as to partial versus complete obstruction (principal); I10 Essential (primary) hypertension; I25.10 Atherosclerotic heart disease of native coronary artery without angina pectoris; J44.89 Other specified chronic obstructive pulmonary disease; E78.5 Hyperlipidemia, unspecified; Z93.3 Colostomy status; Z90.49 Acquired absence of other specified parts of digestive tract; Z85.048 Personal history of other malignant neoplasm of rectum, rectosigmoid junction, and anus; Z87.891 Personal history of nicotine dependence; Z88.1 Allergy status to other antibiotic agents; Z88.5 Allergy status to narcotic agent; Z95.1 Presence of aortocoronary bypass graft; Z79.899 Other long term (current) drug therapy; Z79.51 Long term (current) use of inhaled steroids; Z79.82 Long term (current) use of aspirin; Z92.21 Personal history of antineoplastic chemotherapy; Z92.3 Personal history of irradiation
CPT/HCPCS: 74018; 74022; 80048; 80053; 81003; 83690; 85025; 85027; 93005; 94640; 96361; 96374; 96376; 99285

== ENCOUNTER 2024-04-29 13:15 | Outpatient (RCR) | payer OTHER, SELFPAY | END 2024-04-30 09:11 | disposition home or self-care (01) | LOC: PURB 13:15 | PROVIDERS: ATTENDING PHYSICIAN Internal Medicine Critical Care Medicine; FAMILY PHYSICIAN Internal Medicine | DX: J44.9 Chronic obstructive pulmonary disease, unspecified (principal); J47.9 Bronchiectasis, uncomplicated (principal) | CPT/HCPCS: 94625 ==

== ENCOUNTER 2024-05-29 13:15 | Outpatient (RCR) | payer OTHER, SELFPAY | END 2024-05-30 09:03 | disposition home or self-care (01) | LOC: PURB 13:15 | PROVIDERS: ATTENDING PHYSICIAN Internal Medicine Critical Care Medicine; FAMILY PHYSICIAN Internal Medicine | DX: J44.89 Other specified chronic obstructive pulmonary disease (principal) | CPT/HCPCS: 94625 ==

== ENCOUNTER 2024-06-19 13:15 | Outpatient (RCR) | payer OTHER, SELFPAY | END 2024-06-20 11:01 | disposition home or self-care (01) | LOC: PURB 13:15 | PROVIDERS: ATTENDING PHYSICIAN Internal Medicine Critical Care Medicine; FAMILY PHYSICIAN Internal Medicine | DX: J44.9 Chronic obstructive pulmonary disease, unspecified (principal) | CPT/HCPCS: 94625 ==

== ENCOUNTER → 2025-04-01 11:32 | Outpatient (REF) | payer OTHER, SELFPAY | LOC: RAD 11:32 | PROVIDERS: ATTENDING PHYSICIAN Internal Medicine Critical Care Medicine; FAMILY PHYSICIAN Internal Medicine | DX: R06.02 Shortness of breath (principal); J84.10 Pulmonary fibrosis, unspecified | CPT/HCPCS: 71250 ==

== ENCOUNTER → 2025-04-14 12:22 | Outpatient (REF) | payer OTHER, SELFPAY | LOC: PET 12:22 | PROVIDERS: ATTENDING PHYSICIAN Internal Medicine Critical Care Medicine | DX: R91.1 Solitary pulmonary nodule (principal) | CPT/HCPCS: 78815; A9552 ==

== ENCOUNTER 2025-06-21 19:54 | Emergency (ER) | payer OTHER, SELFPAY ==
[2025-06-21 20:01] VITALS: BP 144/72
[2025-06-21 20:31] LABS: Hematocrit 41.7 % (39.0-52.0); Hemoglobin 13.8 g/dL (13.0-18.0); Mean Corp Hgb Conc. 33.1 g/dL (33.0-37.0); Mean Corpuscular Volume 91.4 fL (80.0-94.0); Nucleated Red Blood Cells % 0 % (-); Platelet Count 178 10^3/uL (130-400); Red Cell Dist. Width 13.9 % (11.5-14.5)
[2025-06-21 20:32] LABS: Urine Character Cloudy (Clear)
[2025-06-21 20:49] LABS: ALT (SGPT) 26 U/L (0-50); AST (SGOT) 36 U/L (17-59); Albumin 4.4 g/dl (3.5-5.0); Alkaline Phosphatase 51 U/L (38-126); Blood Urea Nitrogen 28 mg/dl (9-20); Calcium 9.6 mg/dl (8.4-10.2); Carbon Dioxide 26 mmol/L (22-30); Chloride 102 mmol/L (98-107); Glucose 97 mg/dl (70-99); Potassium 4.9 mmol/L (3.5-5.1); Sodium 136 mmol/L (135-145); Total Protein 7.1 g/dl (6.3-8.2); eGFR > 60.00
[2025-06-21 21:17] LABS: Urine Red Blood Cell >100 /HPF (0-2)
--- NOTE | 2025-06-21 23:04 | ED.GENMED ---
History of Present Illness
<Audrey Leonardo PA-C - Last Filed: 06/22/25 04:18>
General
Chief Complaint: Male Genito-Urinary Symptoms
Source: patient
Exam Limitations: none
Time Seen by Provider: 06/21/25 23:02
Nursing documentation reviewed up to this point in time: agreed with
History of Present Illness
History of Present Illness:
This is 84-year-old male with a past medical history significant for GERD, CAD, COPD, rectal cancer with colostomy in remission, presents to the ER today with concerns of blood in his urine starting tonight. Patient reports that he was getting
ready for bed when he noticed blood with urination. The blood was present throughout the course of urination. The blood with urination has continued and has not improved. He denies bleeding from his penis. He denies recent trauma. The blood is
only present during the urination. He denies any burning with urination, pelvic pain, abdominal pain, flank, fevers or chills. He denies any chest pain or shortness of breath. He denies any dizziness or lightheadedness. Denies any syncopal
episodes. This has never happened to him before. He does not follow with allergy. He does take Flomax 1 tablet once daily. He does not have any difficulty urinating at this time. He denies of pressure in his bladder. He does not currently
smoke.
Past History
<Audrey Leonardo PA-C - Last Filed: 06/22/25 04:18>
Past History
ED Past Medical History: Cancer (Rectal carcinoma), COPD, HTN, Other (Osteoarthritis) and Other (Small bowel obstructions)
ED Past Surgical History: Bowel resection (1995 with colostomy. Bowel resection 1996); Negative Cardiac
Social History
Tobacco: Former smoker
Alcohol: None
Drug: None
Personal:
Living: with family
Employment: Retired
Family History
Family History: Hypertension
Review of Systems
<Audrey Leonardo PA-C - Last Filed: 06/22/25 04:18>
Review of Systems
All Other Systems: ROS reviewed and negative except as documented in HPI and ROS
Phy Exam
<Audrey Leonardo PA-C - Last Filed: 06/22/25 04:18>
Physical Exam
Physical Exam:
General: Patient is well appearing and in no acute distress; non-toxic
Skin: Warm and dry, no rashes or lesions
Head: Normocephalic, atraumatic
Eyes: Sclera non-icteric. EOMs intact.
Cardiac: Regular rate and rhythm, no murmurs
Peripheral Vascular: No lower extremity swelling or edema
Pulm: Normal respiratory effort, no wheezes, rales, or rhonchi
Abdomen: No abdominal tenderness to palpation, no palpable masses, no pulsatile mass, colostomy noted with active output
Genitourinary: No penile lesions. No active bleeding. Dark blood tinged urine present in urinal
Neuro: CN II-XII intact, no focal neurologic deficits.
Psychiatric: Appropriate mood and affect.
Course
<Audrey Leonardo PA-C - Last Filed: 06/22/25 04:18>
Orders/Labs/Results
Orders:
Orders
06/21/25 20:19
Complete Blood Count/With Diff Urgent
Comprehensive Metabolic Panel Urgent
Urinalysis Reflex To Culture Urgent
Date Specimen was Collected: 06/21/25
Time Specimen was Collected: 20:04
Urine Microscopic Reflex Cult Urgent
Urine Culture Urgent
LIANET Source: U
Specimen Description:
Date Specimen was Collected: 06/21/25
Time Specimen was Collected: 20:04
Comment: ADD ON
06/21/25 23:24
US Kidneys and US Bladder [US Renal With Bladder] Urgent
Comment:
Reason For Exam: gross hematuria
06/22/25 01:23
Lidocaine 2% [Lidocaine Uro-Jet 2%] 1 syringe .ROUTE .STK-MED ONE
06/22/25 01:32
Add On- LAB Urgent
Tests Added?: urine culture
Abnormal Lab Results
06/21/25
20:19
RBC 4.56 L 10^6/uL
(4.70-6.10)
Absolute Monos (auto) 0.7 H 10^3/uL
(0.1-0.6)
Monocytes % 9.8 H %
(1.7-9.3)
Eosinophils % 6.2 H %
(0-6)
BUN 28 H mg/dl
(9-20)
Urine Ketones 2+ A
(Negative)
Ur Occult Blood Reflex 4+ A
(Negative)
Urine RBC >100 A /HPF
(0-2)
Urine Albumin (Reflex) 4+ A
(Neg - Trace)
06/21/25 20:19
06/21/25 20:19
Vital Signs
Initial and Last Documented VS:
Initial Vital Signs
Temp Pulse Resp BP Pulse Ox
98.4 F 71 18 144/72 95
06/21/25 20:01 06/21/25 20:01 06/21/25 20:01 06/21/25 20:01 06/21/25 20:01
Last Documented Vital Signs
Temp Pulse Resp BP Pulse Ox
97.5 F 71 18 137/77 95
06/21/25 23:32 06/21/25 20:01 06/21/25 20:01 06/21/25 23:12 06/21/25 23:26
<Mallika Purdy, DO - Last Filed: 06/22/25 07:29>
Orders/Labs/Results
Orders:
Orders
06/21/25 20:19
Complete Blood Count/With Diff Urgent
Comprehensive Metabolic Panel Urgent
Urinalysis Reflex To Culture Urgent
Date Specimen was Collected: 06/21/25
Time Specimen was Collected: 20:04
Urine Microscopic Reflex Cult Urgent
Urine Culture Urgent
LIANET Source: U
Specimen Description:
Date Specimen was Collected: 06/21/25
Time Specimen was Collected: 20:04
Comment: ADD ON
06/21/25 23:24
US Kidneys and US Bladder [US Renal With Bladder] Urgent
Comment:
Reason For Exam: gross hematuria
06/22/25 01:23
Lidocaine 2% [Lidocaine Uro-Jet 2%] 1 syringe .ROUTE .STK-MED ONE
06/22/25 01:32
Add On- LAB Urgent
Tests Added?: urine culture
Abnormal Lab Results
06/21/25
20:19
RBC 4.56 L 10^6/uL
(4.70-6.10)
Absolute Monos (auto) 0.7 H 10^3/uL
(0.1-0.6)
Monocytes % 9.8 H %
(1.7-9.3)
Eosinophils % 6.2 H %
(0-6)
BUN 28 H mg/dl
(9-20)
Urine Ketones 2+ A
(Negative)
Ur Occult Blood Reflex 4+ A
(Negative)
Urine RBC >100 A /HPF
(0-2)
Urine Albumin (Reflex) 4+ A
(Neg - Trace)
06/21/25 20:19
06/21/25 20:19
Vital Signs
Initial and Last Documented VS:
Initial Vital Signs
Temp Pulse Resp BP Pulse Ox
98.4 F 71 18 144/72 95
06/21/25 20:01 06/21/25 20:01 06/21/25 20:01 06/21/25 20:01 06/21/25 20:01
Last Documented Vital Signs
Temp Pulse Resp BP Pulse Ox
97.5 F 71 18 137/77 95
06/21/25 23:32 06/21/25 20:01 06/21/25 20:01 06/21/25 23:12 06/21/25 23:26
<Audrey Leonardo PA-C - Last Filed: 06/22/25 04:18>
MDM/Problems Addressed
Differential Diagnosis Includes:
ddx include malignancy, UTI, calculus, glomerulonephritis, BPH, polycystic kidney disease, etc.
MDM/Problems Addressed:
This is 84-year-old male with a past medical history significant for GERD, CAD, COPD, rectal cancer with colostomy in remission, presents to the ER today with concerns of blood in his urine starting tonight. Patient reports that he was getting
ready for bed when he noticed blood with urination. He has no other associated symptoms; no abdominal pain, no fevers, no flank pain. On physical exam, he is well appearing, in no acute distress, no abdominal tenderness to palpation, no pulsatile
masses. Vital signs are stable. Due to his risk factors for urologic malignancy, he was sent for ultrasound which showed no mass but did show layering of debris in the bladder, suspect this secondary to blood clots vs infectious debris. Reviewed
case with attending. Patient was bladder scanned for 532 ml and was only able to void 100 ml. Patient however stated that he does not feel like he was retaining and he felt no pressure in his bladder. Suspect chronic level of retention/BPH. Patient
was straight cathed without difficulty. Considering no blood clots in urine will hold off on [address] martin at this time. Will start on 3rd generation cephalosporin, discussed strict return precautions and strict follow up with urology. Patient stable
for discharge
<Audrey Leonardo PA-C - Last Filed: 06/22/25 04:18>
*Pulse Oximetry
SaO2: 95
Oxygen Mode of Delivery: Room air
Patient hypoxic: no
*Critical Care Note
Total Time (30-74mins, 75-104mins- exclusive of procedures): Not Applicable
Data Reviewed
Review of Other/Old Records Reveals: Records (reviewed discharge summary from 04/24/24 patient seen for small bowel obstruction)
Source: patient and records
ED Attending Note
<Audrey Leonardo PA-C - Last Filed: 06/22/25 04:18>
-
Portions of this chart may have been created with voice recognition software.� Occasional wrong word or��sound alike� substitutions may have occurred due to the inherent limitations of voice recognition software.
<Mallika Purdy DO - Last Filed: 06/22/25 07:29>
ED Attending Note
Patient seen and examined by attending physician: Yes
I performed a history and physical exam of patient and discussed management with resident, I reviewed resident's note and agree with documented findings and plan of care.: Yes
ED Attending Note:
84-year-old gentleman presents to the ED with concern for gross hematuria. No history of similar episodes in the past. He denies abdominal nor back pain. No fever and or chills. Takes no anticoagulants save for low-dose aspirin. He does have
prior history of urinary retention noted after cardiac surgery, placed on tamsulosin as well as an additional medication. Both of which has been discontinued.
84-year-old gentleman appears his stated age, overall well in appearance. Afebrile.
Abdomen is soft, nontender. Bladder is not palpably distended. No CVA tenderness.
Labs are reassuring with normal white blood cell count, normal H&H, normal platelet count. Normal creatinine with BUN mildly elevated at 28.
Urinalysis with gross hematuria but no clots. Noted to be cloudy. Greater than 100 RBCs on high-powered field. Unable to count bacteria as well as WBCs due to field obscured by RBCs.
Post void residual of 500 cc.
Hematuria may be hemorrhagic cystitis in nature and I suspect an element of chronic urinary retention. Bladder scan shows 500 cc and patient has no abdominal pain and no urge to void.
Renal ultrasound shows no mass, no hydronephrosis but does show layering debris in the bladder. No definitive evidence of clots.
Will plan to straight cath to empty bladder and assess for potential clots.
As patient is comfortable and has been able to urinate, at this point no indication for bladder irrigation and no definitive indication for indwelling Martin catheter.
Will plan to initiate a course of antibiotic for potential UTI. Urine culture is pending.
Will resume Flomax and plan for prompt urology follow-up.
Return precautions discussed.
Discharge Plan
Departure
Patient Disposition: Home (Routine Discharge)
Date of Disposition: 06/22/25
Time of Disposition: 02:00
Patient with high blood pressure during this ER visit?: Yes
Condition: Good
Discharge Problem:
Gross hematuria
Instructions: Blood in the Urine (Hematuria), Adult (DC), Urinary Retention (DC), BLOOD PRESSURE
Prescriptions:
New
cefpodoxime 200 mg tablet
200 mg PO BID 10 Days Qty: 20 0RF
No Action
albuterol sulfate 1 PUFF HFA aerosol inhaler
2 puff inhalation R Q4HPRN PRN (Reason: sob/wheeze)
albuterol sulfate 2.5 MG/3 ML solution for nebulization
2.5 mg inhalation R TIDPRN PRN (Reason: sob/wheezing)
Patient Comments:
per daughter not taking
multivitamin with folic acid [Tab-A-Mirza] 1 TABLET tablet
1 tab PO DAILYPRN PRN (Reason: Supplement)
melatonin 5 MG tablet
5 mg PO HS 0RF
fluticasone furoate-vilanterol [Breo Ellipta] 1 EACH blister with device
1 puff inhalation R BID
acetaminophen 325 MG tablet
650 mg PO Q4HPRN PRN (Reason: aches) 0RF
atorvastatin 40 MG tablet
40 mg PO QPM Qty: 30 2RF
aspirin 81 MG tablet,chewable
81 mg PO DAILY
escitalopram oxalate 10 MG tablet
10 mg PO BID
metoprolol tartrate 25 MG tablet
25 mg PO BID Qty: 0 0RF
tizanidine 2 mg Tablet
2 mg PO BIDPRN PRN (Reason: muscle spasms)
tamsulosin 0.4 mg Capsule
0.8 mg PO DAILY
levocetirizine 5 mg Tablet
5 mg PO QPM
magnesium citrate 100 mg Tablet
200 mg PO DAILY
Spiriva Respimat 1.25 mcg/actuation Mist
2 puff INHALATION R QPM
polyethylene glycol 3350 [HealthyLax] 17 gram Powder In Packet
17 g PO DAILYPRN PRN (Reason: constipation) Qty: 30 0RF
Referrals:
Nella Rios MD [Non-Admitting Privileges, Urology] - Call in 1-3 days for appt
UNKNOWN - PT DOES,NOT KNOW [Unknown Provider]
Activity Restrictions/Additional Instructions:
Antibiotic has been sent to your pharmacy. Please take 1 tablet twice daily for 2 days. Please continue to take your Flomax.
PLEASE CALL THE ATTACHED NUMBER for Dr. Rios's office to schedule appointment to see urology in follow up
PLEASE RETURN TO THE ER SHOULD YOU DEVELOP ABDOMINAL PAIN, BLADDER PAIN, FLANK PAIN, FEVERS OR CHILLS, INABILITY TO URINATE, LIGHTHEADEDNESS, DIZZINESS, OR ANY OTHER SIGNS OR SYMPTOMS WORRISOME TO YOU.
Interventions
Interventions:
*Risk Screen - Suicide Last Done: 06/21/25 20:01
*General Assessment Last Done: 06/21/25 23:13
*Neglect/Abuse Screening Last Done: 06/21/25 20:01
*ED- Fall Risk Assessment Last Done: 06/21/25 23:13
*ED COVID-19 Vaccine History Last Done: 06/21/25 23:13
*Nursing Disposition Last Done: 06/22/25 02:17
ED-Male Genitourinary Assessment Last Done: 06/21/25 23:13
Discharge Date and Time
Discharge Date/Time: 06/22/25 02:17
Print Language: POLISH
[2025-06-21 23:12] VITALS: BP 137/77
== END 2025-06-22 02:17 | disposition home or self-care (01) ==
LOC: EMR 19:54
PROVIDERS: Emergency Medicine; EMERGENCY PHYSICIAN Emergency Medicine; FAMILY PHYSICIAN Internal Medicine
DX: R31.0 Gross hematuria (principal); I10 Essential (primary) hypertension; I25.10 Atherosclerotic heart disease of native coronary artery without angina pectoris; J44.9 Chronic obstructive pulmonary disease, unspecified; Z87.891 Personal history of nicotine dependence; Z93.3 Colostomy status; Z85.048 Personal history of other malignant neoplasm of rectum, rectosigmoid junction, and anus
CPT/HCPCS: 99284; 76770; 80053; 81003; 81015; 85025; 87086

== ENCOUNTER → 2025-06-24 11:29 | Outpatient (REF) | payer OTHER, SELFPAY | LOC: RAD 11:29 | PROVIDERS: ATTENDING PHYSICIAN Internal Medicine Critical Care Medicine; FAMILY PHYSICIAN Internal Medicine | DX: R91.1 Solitary pulmonary nodule (principal) | CPT/HCPCS: 71250 ==

== ENCOUNTER → 2025-09-15 10:56 | Outpatient (REF) | payer OTHER, SELFPAY | LOC: RCS 10:56 | PROVIDERS: ATTENDING PHYSICIAN Nuclear Medicine Nuclear Cardiology; FAMILY PHYSICIAN Internal Medicine | DX: I25.10 Atherosclerotic heart disease of native coronary artery without angina pectoris (principal) | CPT/HCPCS: 93306 ==